=== PATIENT | female | born 1955 | race African-American/Black ===

== ENCOUNTER → 2024-10-19 | Outpatient (CLI) | payer OTHER, MEDICAID ==
[~2024-10-19] MED LIST: ALBU8.5H INH; AMLO1TAB24 PO; CARV3.12 PO; CLON0.1D3 TOP; CLOP75TA2 PO; GABA-1171 PO; METF500T13 PO; PANT40TA29 PO; ROSU40TA81 PO; SPIR-10 PO; SYMB80INH INH
== END ==
LOC: M PLAIMG 10:54
PROVIDERS: ATTEND Family Medicine
DX: M77.11 Lateral epicondylitis, right elbow (principal)

== ENCOUNTER → 2024-10-19 | Outpatient (CLI) | payer OTHER, MEDICAID | LOC: M PLAIMG 10:56 | PROVIDERS: ATTEND Physician Assistant | DX: R06.00 Dyspnea, unspecified (principal); M77.11 Lateral epicondylitis, right elbow ==

== ENCOUNTER → 2024-11-30 | Outpatient (CLI) | payer OTHER, MEDICAID ==
[2024-11-30 14:20] LABS: BASO # 0.0 10^3/uL (0.0-0.2); BASO % 0.4 % (0.0-1.0); EOS # 0.1 10^3/uL (0.0-0.5); EOS % 1.4 % (0.0-3.0); LYMPH # 2.3 10^3/uL (1.5-5.0); LYMPH % 32.2 % (24.0-44.0); MONO # 0.6 10^3/uL (0.0-0.8); MONO % 7.8 % (2.0-8.0); NEUTROPHILS # 4.1 10^3/uL (1.5-8.5); NEUTROPHILS % 57.9 % (36.0-66.0); PLATELET COUNT, AUTOMATED 341 10^3/uL (150-450)
[2024-11-30 14:55] LABS: MALB URINE SIEMENS 324.0 MG/L
[2024-11-30 15:01] LABS: ALT/SGPT 10.0 U/L (7.0-40); AST/SGOT 11.0 U/L (<34); CALCIUM LEVEL 9.5 MG/DL (8.3-10.6); CARBON DIOXIDE LEVEL 29.0 MMOL/L (20-31); CHLORIDE LEVEL 103.0 MMOL/L (98-107); CHOLESTEROL LEVEL 119.0 MG/DL (<200); CHOLESTEROL RISK RATIO 2.86 (<5); CPK CREATINE PHOSPHOKINASE 68.0 U/L (34-145); CREATININE FOR GFR 1.19 MG/DL (0.55-1.30); GLOMERULAR FILTRATION RATE 50.1 (>45); LDL CHOLESTEROL 50.7 MG/DL (<100); MAGNESIUM LEVEL 2.0 MG/DL (1.8-2.4); NON-HDL-C 77.5 MG/DL; POTASSIUM SERUM 3.6 MMOL/L (3.5-5.1); SODIUM LEVEL 142.0 MMOL/L (136-145); TOTAL 25(OH) VITAMIN D 27.6 NG/ML (20.0-100.0); TRIGLYCERIDES LEVEL 134.0 MG/DL (<150); VITAMIN B12 LEVEL 517.0 PG/ML (211-911)
[2024-11-30 15:02] LABS: FREE T4 1.19 NG/DL (0.89-1.76)
[2024-11-30 15:10] LABS: CREATININE, URINE 268.6 MG/DL; MAU/CREAT RATIO 120.6 MCG/MG (0.0-30.0)
== END ==
LOC: M PLALAB 10:08
PROVIDERS: ATTEND Family Medicine
DX: E78.2 Mixed hyperlipidemia (principal); I11.0 Hypertensive heart disease with heart failure; E11.8 Type 2 diabetes mellitus with unspecified complications; M89.9 Disorder of bone, unspecified; K22.9 Disease of esophagus, unspecified; I50.32 Chronic diastolic (congestive) heart failure

== ENCOUNTER 2024-12-25 20:07 | Emergency (ER) | payer OTHER, MEDICAID ==
[~2024-12-25] VITALS: Ht 162.6 cm; Wt 82.3 kg
[2024-12-25 20:40] LABS: BASO # 0.1 10^3/uL (0.0-0.2); BASO % 0.6 % (0.0-1.0); EOS # 0.1 10^3/uL (0.0-0.5); EOS % 1.5 % (0.0-3.0); LYMPH # 3.5 10^3/uL (1.5-5.0); LYMPH % 39.1 % (24.0-44.0); MONO # 1.0 10^3/uL (0.0-0.8); MONO % 11.2 % (2.0-8.0); NEUTROPHILS # 4.2 10^3/uL (1.5-8.5); NEUTROPHILS % 47.2 % (36.0-66.0); PLATELET COUNT, AUTOMATED 334 10^3/uL (150-450)
[2024-12-25 20:54] LABS: INR 1.01
[2024-12-25 21:04] LABS: CALCIUM LEVEL 9.3 MG/DL (8.3-10.6); CARBON DIOXIDE LEVEL 25 MMOL/L (20-31); CHLORIDE LEVEL 101 MMOL/L (98-107); CK-MB VALUE MASS < 1.0 NG/ML (<3.6); CREATININE FOR GFR 1.17 MG/DL (0.55-1.30); GLOMERULAR FILTRATION RATE 51.1 (>45); POTASSIUM SERUM 4.4 MMOL/L (3.5-5.1); SODIUM LEVEL 139 MMOL/L (136-145)
[2024-12-25 21:07] LABS: CPK CREATINE PHOSPHOKINASE 75 U/L (34-145)
[2024-12-25] MEDS: MAALOX 30 ML SUSP *UDC PO ONE (22:08)
[2024-12-25 23:00] LABS: CK-MB VALUE MASS < 1.0 NG/ML (<3.6); CPK CREATINE PHOSPHOKINASE 79 U/L (34-145)
[2024-12-25] MEDS ORDERED: ISOVUE-370 76% 100 ML VIAL As Ordered ONE (23:03)
[2024-12-26] MEDS ORDERED: HEPARIN SOD 5000 UNITS/ML 1 ML VIAL/SYRINGE IV PRN (02:15)
[2024-12-26] MEDS: HEPARIN SOD 5000 UNITS/ML 1 ML VIAL/SYRINGE IV ONE (02:42)
[2024-12-26] MEDS: HEPARIN DRIP 25,000 UNITS in IV 1 EA IV SCH (02:43)
[2024-12-26 03:40] VITALS: BP 136/76; TEMP 98.5; O2SAT 95
== END 2024-12-26 03:45 | disposition short-term general hospital (02) ==
LOC: M ED 20:07
DX: I20.0 Unstable angina (principal); I50.22 Chronic systolic (congestive) heart failure; J18.1 Lobar pneumonia, unspecified organism; E11.9 Type 2 diabetes mellitus without complications; I11.0 Hypertensive heart disease with heart failure; E78.5 Hyperlipidemia, unspecified; K21.9 Gastro-esophageal reflux disease without esophagitis; J45.909 Unspecified asthma, uncomplicated; Z79.51 Long term (current) use of inhaled steroids; Z79.84 Long term (current) use of oral hypoglycemic drugs; Z79.899 Other long term (current) drug therapy
CPT/HCPCS: 71045; 71275; 80048; 82550; 82553; 84484; 85025; 85610; 85730; 93005; 93041; 94760; 96365; 99285; Q9967

== ENCOUNTER 2025-02-14 07:06 | Day surgery (SDC) | payer OTHER, MEDICAID ==
[~2025-02-14] VITALS: Ht 162.6 cm; Wt 82.5 kg
[~2025-02-14 07:06] MED LIST changes: +ADVA230A; +CARV3.12; +ECOT81TA5 PO; +HYDR12.55 PO; +ISOS1TAB35 PO; +PHENYLEPHRINE 10% OPHTH SOL 5ML OD PRN
[2025-02-14] MEDS: TROPICAMIDE 1% OPHTH SOLN 15ML OD SCH (08:09)
[2025-02-14] MEDS: OFLOXACIN 0.3 % (OCUFLOX) OPTH SOL 5ML OD ONE (08:09)
[2025-02-14] MEDS: PHENYLEPHRINE 2.5% OPHTH SOL 2ML OD SCH (08:09)
[2025-02-14] MEDS: CYCLOPENTOLATE 1% OPHTH SOLN 2 ML BTL OD SCH (08:09)
[2025-02-14] MEDS: LIDOCAINE 3.5% 1 ML OPHTH TOPICAL GEL OU ONE (08:09)
[2025-02-14] MEDS: ONDANSETRON 4MG/2ML VIAL IV ONE (09:14)
[2025-02-14] MEDS ORDERED: MIDAZOLAM INJ 2 MG/2 ML VIAL As Ordered ONE (09:54)
[2025-02-14] MEDS: LIDOCAINE 1% SDV 5 ML VIAL As Ordered ONE (10:05)
[2025-02-14] MEDS: BSS IRRIG/VANCO(10MG)/TOBRA(5MG)/EPINEPH(1:1000-0.5CC)500ML BAG-ORONLY As Ordered ONE (10:05)
[2025-02-14] MEDS: CEFUROXIME 1 MG/0.1 ML INTRACAMERAL INJ As Ordered ONE (10:05)
[2025-02-14 10:20] VITALS: BP 126/62; TEMP 96.9; O2SAT 97
== END 2025-02-14 12:12 | disposition home or self-care (01) ==
LOC: M SDC 07:06
PROVIDERS: ATTEND Ophthalmology
DX: E11.36 Type 2 diabetes mellitus with diabetic cataract (principal); H25.11 Age-related nuclear cataract, right eye; I10 Essential (primary) hypertension; E11.40 Type 2 diabetes mellitus with diabetic neuropathy, unspecified; E78.00 Pure hypercholesterolemia, unspecified; I25.10 Atherosclerotic heart disease of native coronary artery without angina pectoris; K76.0 Fatty (change of) liver, not elsewhere classified; K21.9 Gastro-esophageal reflux disease without esophagitis; Z79.899 Other long term (current) drug therapy; Z79.02 Long term (current) use of antithrombotics/antiplatelets; Z79.84 Long term (current) use of oral hypoglycemic drugs; Z86.73 Personal history of transient ischemic attack (TIA), and cerebral infarction without residual deficits; Z86.718 Personal history of other venous thrombosis and embolism; Z90.710 Acquired absence of both cervix and uterus; Z79.82 Long term (current) use of aspirin; M10.9 Gout, unspecified
CPT/HCPCS: 66984; 92015; J0697; J2250; J2405; J2765; J3010; V2632

== ENCOUNTER 2025-02-21 08:29 | Day surgery (SDC) | payer OTHER, MEDICAID ==
[~2025-02-21] VITALS: Ht 162.6 cm; Wt 82.2 kg
[~2025-02-21 08:29] MED LIST changes: -ADVA230A; +ADVA230A INH; -CARV3.12; -PHENYLEPHRINE 10% OPHTH SOL 5ML OD PRN; +PHENYLEPHRINE 10% OPHTH SOL 5ML OS PRN
[2025-02-21] MEDS: TROPICAMIDE 1% OPHTH SOLN 15ML OS SCH (09:31)
[2025-02-21] MEDS: CYCLOPENTOLATE 1% OPHTH SOLN 2 ML BTL OS SCH (09:31)
[2025-02-21] MEDS: OFLOXACIN 0.3 % (OCUFLOX) OPTH SOL 5ML OS ONE (09:31)
[2025-02-21] MEDS: PHENYLEPHRINE 2.5% OPHTH SOL 2ML OS SCH (09:32)
[2025-02-21] MEDS: LIDOCAINE 3.5% 1 ML OPHTH TOPICAL GEL OU ONE (09:32)
[2025-02-21] MEDS: ONDANSETRON 4MG/2ML VIAL IV ONE (09:55)
[2025-02-21] MEDS: LIDOCAINE 1% SDV 5 ML VIAL As Ordered ONE (10:08)
[2025-02-21] MEDS: CEFUROXIME 1 MG/0.1 ML INTRACAMERAL INJ As Ordered ONE (10:08)
[2025-02-21] MEDS: BSS IRRIG/VANCO(10MG)/TOBRA(5MG)/EPINEPH(1:1000-0.5CC)500ML BAG-ORONLY As Ordered ONE (10:08)
[2025-02-21 10:20] VITALS: BP 148/80; TEMP 97.2; O2SAT 99
[2025-03-11] MEDS ORDERED: TAMI30CA PO (10:56)
== END 2025-02-21 10:30 | disposition home or self-care (01) ==
LOC: M SDC 08:29
PROVIDERS: ATTEND Ophthalmology
DX: E11.36 Type 2 diabetes mellitus with diabetic cataract (principal); H25.12 Age-related nuclear cataract, left eye; I25.10 Atherosclerotic heart disease of native coronary artery without angina pectoris; I10 Essential (primary) hypertension; E11.40 Type 2 diabetes mellitus with diabetic neuropathy, unspecified; E78.00 Pure hypercholesterolemia, unspecified; N28.9 Disorder of kidney and ureter, unspecified; J45.909 Unspecified asthma, uncomplicated; K21.9 Gastro-esophageal reflux disease without esophagitis; K76.0 Fatty (change of) liver, not elsewhere classified; I69.954 Hemiplegia and hemiparesis following unspecified cerebrovascular disease affecting left non-dominant side; M10.9 Gout, unspecified; Z79.899 Other long term (current) drug therapy; Z79.1 Long term (current) use of non-steroidal anti-inflammatories (NSAID); Z79.82 Long term (current) use of aspirin; Z79.84 Long term (current) use of oral hypoglycemic drugs; Z90.710 Acquired absence of both cervix and uterus
CPT/HCPCS: 66984; 92015; J0697; J2405; J3010; V2632